=== PATIENT | female | born 1965 | race American Indian/Alaskan Native ===

== ENCOUNTER 2017-04-15 08:47 | Emergency (ER) | payer MEDICAID ==
[2017-04-15 10:12] LABS: Basophils # (Auto) 0.1 K/mm3 (0.0-0.1); Basophils % (Auto) 0.8 % (0.0-1.8); Eosinophils # (Auto) 0.4 K/mm3 (0.0-0.4); Eosinophils % (Auto) 5.3 % (0.0-4.3); Hematocrit 40.6 % (30.3-42.9); Hemoglobin 12.7 gm/dl (10.1-14.3); Lymphocytes # (Auto) 1.9 K/mm3 (1.2-5.4); Lymphocytes % (Auto) 23.1 % (13.4-35.0); Mean Corpuscular HGB Conc 31 % (30-34); Mean Corpuscular Volume 76 fl (79-97); Monocytes # (Auto) 0.6 K/mm3 (0.0-0.8); Platelet Count 258 K/mm3 (140-440); Red Blood Count 5.33 M/mm3 (3.65-5.03); Red Cell Distribution Width 13.9 % (13.2-15.2)
[2017-04-15 10:22] LABS: BUN/Creatinine Ratio 13; Blood Urea Nitrogen 10 mg/dL (7-17); Calcium 8.6 mg/dL (8.4-10.2); Hemolysis Index 5; Mean Corpuscular Hemoglobin 24 pg (28-32)
[2017-04-15 13:30] LABS: Bilirubin,Urine NEG (Negative); Blood,Urine NEG (Negative); Color,Urine Yellow (Yellow); Mucus,Urine FEW /HPF; Nitrite,Urine NEG (Negative); Protein,Urine <15 mg/dL mg/dL (Negative); Urobilinogen,Urine < 2.0 mg/dL (<2.0)
[2017-04-15] MEDS ORDERED: NACL 0.9% 1000 ML 1,000 ML ONE (14:12)
--- NOTE | 2017-04-15 14:21 | Emergency Department Report ---
ED General Adult HPI - General Chief complaint: Hyperglycemia Stated complaint: BLOOD SUGAR HIGH Time Seen by Provider: 04/15/17 14:09 Source: patient Mode of arrival: Ambulatory Limitations: No Limitations - History of Present Illness Initial comments: 51 years old female history of diabetes and sarcoidosis and hypertension, presented to the ER with elevated blood sugar. Patient stated that for the last 2-3 days she is unable to control her blood sugar although she is taking her insulin and eating a diabetic meal. Patient stated that the last few days she's been coughing with greenish sputum. She also had a left eye redness for which she saw her mannequin maker today and was given antibiotic eyedrops. Patient denied any chest pain or shortness of breath. - Related Data Home Medications Medication Instructions Recorded Confirmed Last Taken Insulin Detemir [Levemir VIAL] 30 units IM TID 01/04/16 01/04/16 Unknown Insulin Lispro [HumaLOG VIAL] 15 units SQ AC 01/04/16 01/04/16 Unknown [place] Carbonate [Eskalith] 300 mg PO QAM 01/04/16 01/04/16 Unknown [place] Carbonate [Eskalith] 600 mg PO QHS 01/04/16 01/04/16 Unknown Simvastatin [Zocor TAB] 20 mg PO QHS 01/04/16 01/04/16 Unknown buPROPion XL [Wellbutrin XL] 150 mg PO QAM 01/04/16 01/04/16 Unknown Previous Rx's Medication Instructions Recorded Last Taken Type Famotidine [Pepcid] 20 mg PO BID #60 tablet 01/05/16 Unknown Rx Allergies Allergy/AdvReac Type Severity Reaction Status Date / Time No Known Allergies Allergy Verified 01/04/16 00:09 ED Review of Systems ROS: Stated complaint: BLOOD SUGAR HIGH Other details as noted in HPI Comment: All other systems reviewed and negative Constitutional: denies: chills, fever Eyes: eye discharge Respiratory: denies: cough, orthopnea, shortness of breath, SOB with exertion Cardiovascular: denies: chest pain Gastrointestinal: denies: abdominal pain, nausea, vomiting, diarrhea, constipation, hematemesis, melena, hematochezia Neurological: denies: headache, weakness, numbness, paresthesias ED Past Medical Hx - Past Medical History Previous Medical History?: Yes Hx Hypertension: Yes (patient states she was taken off her blood pressure medicine) Hx CVA: Yes (?) Hx Diabetes: Yes Hx Asthma: Yes Additional medical history: SARCODOSIS / HIGH CHOLESTEROL - Surgical History Past Surgical History?: Yes Additional Surgical History: HYSTERECTOMY - Social History Smoking Status: Former Smoker Substance Use Type: Non Opiate Pain, Prescribed - Medications Home Medications: Home Medications Medication Instructions Recorded Confirmed Last Taken Type Insulin Detemir [Levemir VIAL] 30 units IM TID 01/04/16 01/04/16 Unknown History Insulin Lispro [HumaLOG VIAL] 15 units SQ AC 01/04/16 01/04/16 Unknown History [place] Carbonate [Eskalith] 300 mg PO QAM 01/04/16 01/04/16 Unknown History [place] Carbonate [Eskalith] 600 mg PO QHS 01/04/16 01/04/16 Unknown History Simvastatin [Zocor TAB] 20 mg PO QHS 01/04/16 01/04/16 Unknown History buPROPion XL [Wellbutrin XL] 150 mg PO QAM 01/04/16 01/04/16 Unknown History Famotidine [Pepcid] 20 mg PO BID #60 tablet 01/05/16 Unknown Rx ED Physical Exam - General Limitations: No Limitations General appearance: alert, in no apparent distress - Head Head exam: Present: atraumatic, normocephalic, normal inspection - Eye Eye exam: Present: conjunctival injection - ENT ENT exam: Present: normal exam, normal orophraynx, mucous membranes moist - Neck Neck exam: Present: normal inspection, full ROM. Absent: tenderness, meningismus - Respiratory Respiratory exam: Present: normal lung sounds bilaterally. Absent: respiratory distress, wheezes, rales, rhonchi, stridor, chest wall tenderness, accessory muscle use, decreased breath sounds, prolonged expiratory - Cardiovascular Cardiovascular Exam: Present: regular rate, normal rhythm, normal heart sounds - GI/Abdominal GI/Abdominal exam: Present: soft, normal bowel sounds. Absent: distended, tenderness, guarding, rebound, rigid, organomegaly, mass, bruit, pulsatile mass , hernia - Extremities Exam Extremities exam: Present: normal inspection, full ROM, normal capillary refill - Back Exam Back exam: Present: normal inspection, full ROM. Absent: tenderness, CVA tenderness (R), CVA tenderness (L), muscle spasm, paraspinal tenderness, vertebral tenderness, rash noted - Neurological Exam Neurological exam: Present: alert, oriented X3, CN II-XII intact, normal gait - Skin Skin exam: Present: warm, intact, normal color. Absent: cyanosis, diaphoretic, erythema, urticaria ED Course Vital Signs 04/15/17 04/15/17 09:34 15:41 Temperature 98.7 F Pulse Rate 89 75 Respiratory 20 16 Rate Blood Pressure 138/76 Blood Pressure 137/71 [Left] O2 Sat by Pulse 100 99 Oximetry - Reevaluation(s) Reevaluation #1: 04/15/17 19:52 Patient stated that she is feeling much better. I advised to follow-up with her primary care physician in the next 2-3 days. Patient admitted that she is not taking her Levemir as she is supposed to sometimes she skipped a dose or 2. ED Medical Decision Making - Lab Data Result diagrams: 04/15/17 09:46 04/15/17 09:46 - EKG Data -: EKG Interpreted by Ia EKG shows normal: sinus rhythm - EKG Data Interpretation: no acute changes - Radiology Data Radiology results: report reviewed Referring Physician: BOBBY BROCK Patient Name: DOTTY CHAIDEZ Date of : 1965 Sex: Female Report Date: 2017-04-15 Report Status: Finalized Findings [address] [address] XRay Report Signed Patient: DOTTY CHAIDEZ MR#: [id number] : 1965 Acct:[id number] Age/Sex: 51 / F ADM Date: 04/15/17 Loc: ED Attending Dr: Ordering Physician: BOBBY BROCK Date of Service: 04/15/17 Procedure(s): XR chest 1V ap Accession Number(s): [id number] cc: BOBBY BROCK Fluoro Time In Minutes: AP CHEST: HISTORY: Cough AP view of the chest demonstrates a normal mediastinal and cardiac contour with clear lungs and normal bony and soft tissue structures. IMPRESSION: Unremarkable AP chest. Transcribed By: TTR Dictated By: CONSUELO PALOMINO JR, MD Electronically Authenticated By: CONSUELO PALOMINO JR, MD Signed Date/Time: 04/15/171445 DD/ 45 TD/TT: 04/15/171445 Critical care attestation.: If time is entered above; I have spent that time in minutes in the direct care of this critically ill patient, excluding procedure time. ED Disposition Clinical Impression: Diabetes mellitus type 2 in nonobese, Hyperglycemia due to type 2 diabetes mellitus Disposition: - TO HOME OR SELFCARE Is pt being admited?: No Condition: Stable Instructions: Diabetes Mellitus Type 2 in Adults (ED) Referrals: PRIMARY CARE, [Primary Care Provider] - 3-5 Days
--- NOTE | 2017-04-15 14:52 | XRay Report ---
AP CHEST: HISTORY: Cough AP view of the chest demonstrates a normal mediastinal and cardiac contour with clear lungs and normal bony and soft tissue structures. IMPRESSION: Unremarkable AP chest.
[2017-04-15] MEDS ORDERED: NACL 0.9% 1000 ML 1,000 ML IV ONE ×3 (15:29→18:35)
[2017-04-15 15:42] VITALS: BP 137/71
[2017-04-15] MEDS ORDERED: TYLENOL ONE (16:16)
[2017-04-15] MEDS ORDERED: TYLENOL PO ONE (16:18)
== END 2017-04-15 20:27 | disposition home or self-care (01) ==
LOC: ED 08:47
DX: E11.65 Type 2 diabetes mellitus with hyperglycemia (principal); I10 Essential (primary) hypertension; J45.909 Unspecified asthma, uncomplicated
CPT/HCPCS: 71045; 80048; 81001; 82962; 84484; 85025; 93005; 93010; 96361; 96372; 96374; 99284; J7030; J1815

== ENCOUNTER 2017-08-09 13:42 | Emergency (ER) | payer MEDICAID ==
[2017-08-09 15:26] LABS: Basophils # (Auto) 0.1 K/mm3 (0.0-0.1); Basophils % (Auto) 1.1 % (0.0-1.8); Eosinophils # (Auto) 0.4 K/mm3 (0.0-0.4); Eosinophils % (Auto) 3.8 % (0.0-4.3); Hematocrit 41.5 % (30.3-42.9); Hemoglobin 13.1 gm/dl (10.1-14.3); Lymphocytes # (Auto) 1.9 K/mm3 (1.2-5.4); Lymphocytes % (Auto) 19.2 % (13.4-35.0); Mean Corpuscular HGB Conc 32 % (30-34); Mean Corpuscular Volume 74 fl (79-97); Monocytes # (Auto) 0.7 K/mm3 (0.0-0.8); Monocytes % (Auto) 7.3 % (0.0-7.3); Platelet Count 316 K/mm3 (140-440); Red Blood Count 5.59 M/mm3 (3.65-5.03); Red Cell Distribution Width 14.5 % (13.2-15.2)
[2017-08-09 15:29] LABS: Mean Corpuscular Hemoglobin 24 pg (28-32)
[2017-08-09 15:50] LABS: Alanine Aminotransferase 14 units/L (7-56); Albumin 3.9 g/dL (3.9-5); BUN/Creatinine Ratio 19; Blood Urea Nitrogen 15 mg/dL (7-17); Calcium 9.3 mg/dL (8.4-10.2); Hemolysis Index 9; Lipase 24 units/L (13-60)
[2017-08-09 17:04] LABS: Bacteria,Urine 1+ /HPF (Negative); Bilirubin,Urine NEG (Negative); Blood,Urine NEG (Negative); Color,Urine Yellow (Yellow); Hyaline Casts,Urine 3 /LPF; Mucus,Urine FEW /HPF; Protein,Urine <15 mg/dL mg/dL (Negative); Urobilinogen,Urine < 2.0 mg/dL (<2.0)
--- NOTE | 2017-08-10 00:06 | Emergency Department Report ---
ED General Adult HPI - General Chief complaint: Pain General Stated complaint: GROIN PAIN Time Seen by Provider: 08/10/17 00:01 Source: patient Mode of arrival: Ambulatory Limitations: No Limitations - History of Present Illness Initial comments: Previous abdominal surgery here today with increasing left lower quadrant pain, occ nausea and vomiting but no black or bloody stool, no fever, no radiation, no cp, no calf pain or swelling, no cough or sob -: Gradual, days(s) Location: abdomen Radiation: non-radiation Quality: sharp Consistency: intermittent, colicky Associated Symptoms: malaise, nausea/vomiting. denies: diaphoresis, fever/ chills, headaches, loss of appetite, rash, seizure, shortness of breath, syncope , weakness - Related Data Home Medications Medication Instructions Recorded Confirmed Last Taken Insulin Detemir [Levemir VIAL] 30 units IM TID 01/04/16 01/04/16 Unknown Insulin Lispro [HumaLOG VIAL] 15 units SQ AC 01/04/16 01/04/16 Unknown [place] Carbonate [Eskalith] 300 mg PO QAM 01/04/16 01/04/16 Unknown [place] Carbonate [Eskalith] 600 mg PO QHS 01/04/16 01/04/16 Unknown Simvastatin [Zocor TAB] 20 mg PO QHS 01/04/16 01/04/16 Unknown buPROPion XL [Wellbutrin XL] 150 mg PO QAM 01/04/16 01/04/16 Unknown Previous Rx's Medication Instructions Recorded Last Taken Type Famotidine [Pepcid] 20 mg PO BID #60 tablet 01/05/16 Unknown Rx Ciprofloxacin HCl [Cipro] 500 mg PO BID #14 tablet 08/10/17 Unknown Rx metroNIDAZOLE [Flagyl] 500 mg PO Q12HR #14 tab 08/10/17 Unknown Rx Allergies Allergy/AdvReac Type Severity Reaction Status Date / Time No Known Allergies Allergy Verified 01/04/16 00:09 ED Review of Systems ROS: Stated complaint: GROIN PAIN Other details as noted in HPI Comment: All other systems reviewed and negative Constitutional: denies: diaphoresis, fever, malaise Eyes: denies: eye discharge, vision change ENT: denies: dental pain, hearing loss, epistaxis Respiratory: denies: shortness of breath, SOB with exertion, SOB at rest, stridor Cardiovascular: denies: chest pain, palpitations, dyspnea on exertion, orthopnea , edema, syncope Gastrointestinal: abdominal pain, nausea. denies: diarrhea, constipation, hematemesis, melena, hematochezia Genitourinary: denies: urgency, dysuria, frequency, hematuria, discharge Neurological: denies: headache, weakness, numbness, paresthesias, confusion, abnormal gait Hematological/Lymphatic: denies: easy bruising, swollen glands ED Past Medical Hx - Past Medical History Previous Medical History?: Yes Hx Hypertension: Yes (patient states she was taken off her blood pressure medicine) Hx CVA: Yes (?) Hx Diabetes: Yes Hx Asthma: Yes Additional medical history: SARCODOSIS / HIGH CHOLESTEROL - Surgical History Past Surgical History?: Yes Additional Surgical History: HYSTERECTOMY - Social History Smoking Status: Former Smoker Substance Use Type: Prescribed - Medications Home Medications: Home Medications Medication Instructions Recorded Confirmed Last Taken Type Insulin Detemir [Levemir VIAL] 30 units IM TID 01/04/16 01/04/16 Unknown History Insulin Lispro [HumaLOG VIAL] 15 units SQ AC 01/04/16 01/04/16 Unknown History [place] Carbonate [Eskalith] 300 mg PO QAM 01/04/16 01/04/16 Unknown History [place] Carbonate [Eskalith] 600 mg PO QHS 01/04/16 01/04/16 Unknown History Simvastatin [Zocor TAB] 20 mg PO QHS 01/04/16 01/04/16 Unknown History buPROPion XL [Wellbutrin XL] 150 mg PO QAM 01/04/16 01/04/16 Unknown History Famotidine [Pepcid] 20 mg PO BID #60 tablet 01/05/16 Unknown Rx Ciprofloxacin HCl [Cipro] 500 mg PO BID #14 tablet 08/10/17 Unknown Rx metroNIDAZOLE [Flagyl] 500 mg PO Q12HR #14 tab 08/10/17 Unknown Rx ED Physical Exam - General Limitations: No Limitations General appearance: alert, anxious, other (nontoxic) - Head Head exam: Present: atraumatic, normocephalic - Eye Eye exam: Present: normal appearance, PERRL, EOMI - ENT ENT exam: Present: normal exam, normal orophraynx - Neck Neck exam: Present: normal inspection. Absent: tenderness, meningismus - Respiratory Respiratory exam: Present: normal lung sounds bilaterally. Absent: respiratory distress, wheezes, rales, rhonchi, stridor, chest wall tenderness, accessory muscle use, decreased breath sounds, prolonged expiratory - Cardiovascular Cardiovascular Exam: Present: regular rate, normal rhythm, normal heart sounds. Absent: bradycardia, tachycardia, irregular rhythm - GI/Abdominal GI/Abdominal exam: Present: soft, tenderness, other (left lower quadrant tenderness). Absent: guarding, rebound, rigid, mass, pulsatile mass - Rectal Rectal exam: Present: deferred - Extremities Exam Extremities exam: Present: normal inspection, normal capillary refill. Absent: pedal edema, joint swelling, calf tenderness - Back Exam Back exam: Present: normal inspection. Absent: CVA tenderness (L), muscle spasm , paraspinal tenderness, vertebral tenderness - Neurological Exam Neurological exam: Present: alert, oriented X3, CN II-XII intact. Absent: motor sensory deficit - Skin Skin exam: Present: warm. Absent: cyanosis, diaphoretic, erythema, urticaria, vesicles, petechiae, pallor, abrasion, ecchymosis ED Course Vital Signs 08/09/17 08/09/17 08/09/17 14:40 23:43 23:44 Temperature 98.5 F Pulse Rate 74 Respiratory 20 Rate Blood Pressure 122/70 135/85 Blood Pressure [Left] O2 Sat by Pulse 98 100 100 Oximetry 08/09/17 08/09/17 08/10/17 23:45 23:57 00:00 Temperature Pulse Rate 80 78 Respiratory 21 20 Rate Blood Pressure 135/85 135/85 138/87 Blood Pressure [Left] O2 Sat by Pulse 99 100 100 Oximetry 08/10/17 08/10/17 08/10/17 00:15 00:30 00:45 Temperature Pulse Rate 85 83 81 Respiratory 22 21 19 Rate Blood Pressure 135/85 129/81 138/87 Blood Pressure [Left] O2 Sat by Pulse 99 100 Oximetry 08/10/17 08/10/17 08/10/17 01:01 01:11 01:15 Temperature 97.7 F Pulse Rate 79 88 77 Respiratory 19 16 17 Rate Blood Pressure 138/87 129/81 Blood Pressure 135/85 [Left] O2 Sat by Pulse 100 100 100 Oximetry 08/10/17 08/10/17 08/10/17 01:31 01:45 02:45 Temperature Pulse Rate 77 79 85 Respiratory 19 18 20 Rate Blood Pressure Blood Pressure [Left] O2 Sat by Pulse 99 100 99 Oximetry 08/10/17 08/10/17 08/10/17 03:00 03:15 03:31 Temperature Pulse Rate 75 75 79 Respiratory 18 17 13 Rate Blood Pressure 121/81 Blood Pressure [Left] O2 Sat by Pulse 100 99 Oximetry 08/10/17 08/10/17 08/10/17 03:45 04:00 04:15 Temperature Pulse Rate 92 H 74 78 Respiratory 18 19 19 Rate Blood Pressure 121/81 127/81 Blood Pressure [Left] O2 Sat by Pulse 98 Oximetry 08/10/17 04:31 Temperature Pulse Rate 78 Respiratory 14 Rate Blood Pressure 127/81 Blood Pressure [Left] O2 Sat by Pulse 100 Oximetry ED Medical Decision Making - Lab Data Result diagrams: 08/09/17 15:03 08/09/17 15:03 - Radiology Data Radiology results: report reviewed - Medical Decision Making Patient tolerating by mouth CT does show diverticulitis no evidence of perforation or abscess patient does not have evidence of a surgical abdomen at this time and vital signs are stable she is here for stable for outpatient follow-up Critical care attestation.: If time is entered above; I have spent that time in minutes in the direct care of this critically ill patient, excluding procedure time. ED Disposition Clinical Impression: Diverticulitis Disposition: DC-01 TO HOME OR SELFCARE Is pt being admited?: No Condition: Stable Instructions: Diverticulitis (ED) Additional Instructions: Return if new alarming symptoms see the doctor listed very regular doctor Prescriptions: Ciprofloxacin HCl [Cipro] 500 mg PO BID #14 tablet metroNIDAZOLE [Flagyl] 500 mg PO Q12HR #14 tab Referrals: FANTA MCKENZIE MD [Primary Care Provider] - 3-5 Days LOTTIE SERNA MD [Staff Physician] - 3-5 Days Time of Disposition: 05:08
--- NOTE | 2017-08-10 03:14 | Cat Scan Report ---
FINAL REPORT PROCEDURE: CT ABDOMEN PELVIS W CON TECHNIQUE: Computerized axial tomography of the abdomen and pelvis was performed after the IV injection of iodinated nonionic contrast. HISTORY: abd pain COMPARISON: No prior studies are available for comparison. FINDINGS: Visualized lower thorax: No significant abnormality. Liver: Liver is enlarged at 20 centimeters. There is no mass.. Spleen: Normal size and attenuation. Gallbladder and biliary system: Normal. Pancreas: Normal. Adrenals: Normal. Kidneys: Normal. GI tract: There is focal acute diverticulitis of the left colon. There is no obstruction or perforation. The stomach, small bowel and appendix are normal.. Lymph nodes and mesentery: There are borderline enlarged mesenteric lymph nodes which are nonspecific.. Vasculature: Normal. Bladder: Normal. Reproductive organs: There has been a hysterectomy. Peritoneum: There is no ascites, free air, abscess or mass.. Musculoskeletal structures: No significant abnormality. Other: None. IMPRESSION: Liver is enlarged at 20 centimeters. There is no mass.. There is focal acute diverticulitis of the left colon. There is no obstruction or perforation. The stomach, small bowel and appendix are normal.. There are borderline enlarged mesenteric lymph nodes which are nonspecific.. There has been a hysterectomy. There is no ascites, free air, abscess or mass..
[2017-08-10 05:27] VITALS: BP 115/76
== END 2017-08-10 05:30 | disposition home or self-care (01) ==
LOC: ED 13:42
DX: K57.92 Diverticulitis of intestine, part unspecified, without perforation or abscess without bleeding (principal); I10 Essential (primary) hypertension; E78.00 Pure hypercholesterolemia, unspecified; E11.9 Type 2 diabetes mellitus without complications; J45.909 Unspecified asthma, uncomplicated; Z86.73 Personal history of transient ischemic attack (TIA), and cerebral infarction without residual deficits; Z90.710 Acquired absence of both cervix and uterus; Z87.891 Personal history of nicotine dependence; Z79.4 Long term (current) use of insulin
CPT/HCPCS: 36415; 74177; 80053; 81001; 82962; 83690; 85025; 99284; Q9967

== ENCOUNTER 2020-09-05 16:04 | Emergency (ER) | payer MEDICAID ==
[2020-09-05 16:22] VITALS: BP 126/76
--- NOTE | 2020-09-05 17:29 | Emergency Department Report ---
ED Back Pain/Injury HPI - General Chief Complaint: Extremity Injury, Lower Stated Complaint: RT SIDE BACK/FRONT PAIN Source: patient Limitations: No Limitations - History of Present Illness Initial Comments: Patient is a 54-year-old -Al[place] female with a history of hypertension, CVA, [id number] diabetes, chronic osteoarthritis, sarcoidosis and asthma who presents to the ED with complaint of acute onset persistent nontraumatic low back pain that radiates to the right hip for the last 12 hours, worse in the last 2 hours. Patient states that the pain is worse with any movement. Patient denies fall, traumatic injury, dizziness, syncope, dysuria, urinary frequency and urgency, abdominal pain, fever, chills, cough, chest pain, shortness of breath, numbness and tingling or weakness of upper and lower extremities bilaterally or heavy lifting. MD Complaint: back pain, other (right hip pain) -: Sudden, hour(s) (12) Similar Symptoms Previously: Yes Place: home Radiation: groin, buttocks Severity: severe Severity scale (0 -10): 7 Consistency: constant Improves With: none Worsens With: movement, walking Associated Symptoms: denies other symptoms. denies: confusion, weakness, chest pain, numbness, difficulty walking, cough, difficulty urinating, diaphoresis, incontinence, fever/chills, constipation, headaches, abdominal pain, loss of appetite, malaise, nausea/vomiting, rash, seizure, syncope - Related Data Home Medications Medication Instructions Recorded Confirmed Last Taken Insulin Detemir [Levemir VIAL] 30 units IM TID 01/04/16 01/04/16 Unknown Insulin Lispro [HumaLOG VIAL] 15 units SQ AC 01/04/16 01/04/16 Unknown [place] Carbonate [Eskalith] 300 mg PO QAM 01/04/16 01/04/16 Unknown [place] Carbonate [Eskalith] 600 mg PO QHS 01/04/16 01/04/16 Unknown Simvastatin (Nf) [Zocor TAB] 20 mg PO QHS 01/04/16 01/04/16 Unknown buPROPion XL [Wellbutrin XL] 150 mg PO QAM 01/04/16 01/04/16 Unknown Previous Rx's Medication Instructions Recorded Last Taken Type Famotidine [Pepcid] 20 mg PO BID #60 tablet 01/05/16 Unknown Rx Ciprofloxacin HCl [Cipro] 500 mg PO BID #14 tablet 08/10/17 Unknown Rx metroNIDAZOLE [Flagyl] 500 mg PO Q12HR #14 tab 08/10/17 Unknown Rx Baclofen 40 mg PO Q12H PRN #20 tablet 09/05/20 Unknown Rx Naproxen 500 mg PO Q12H PRN #30 tablet 09/05/20 Unknown Rx predniSONE [Deltasone] 40 mg PO QDAY #10 tab 09/05/20 Unknown Rx Allergies Allergy/AdvReac Type Severity Reaction Status Date / Time No Known Allergies Allergy Verified 09/05/20 16:17 ED Review of Systems ROS: Stated complaint: RT SIDE BACK/FRONT PAIN Other details as noted in HPI Constitutional: denies: chills, fever Eyes: denies: eye pain, eye discharge, vision change ENT: denies: ear pain, throat pain Respiratory: denies: cough, shortness of breath, wheezing Cardiovascular: denies: chest pain, palpitations Endocrine: no symptoms reported Gastrointestinal: denies: abdominal pain, nausea, diarrhea Genitourinary: denies: urgency, dysuria, discharge Musculoskeletal: back pain (lower back pain), arthralgia (right hip pain), myalgia. denies: joint swelling Skin: denies: rash, lesions Neurological: denies: headache, weakness, paresthesias Psychiatric: denies: anxiety, depression Hematological/Lymphatic: denies: easy bleeding, easy bruising ED Past Medical Hx - Past Medical History Hx Hypertension: Yes Hx CVA: Yes (?) Hx Diabetes: Yes Hx Arthritis: Yes Hx Asthma: Yes Additional medical history: SARCODOSIS / HIGH CHOLESTEROL - Surgical History Additional Surgical History: HYSTERECTOMY - Social History Smoking Status: Never Smoker Substance Use Type: None - Medications Home Medications: Home Medications Medication Instructions Recorded Confirmed Last Taken Type Insulin Detemir [Levemir VIAL] 30 units IM TID 01/04/16 01/04/16 Unknown History Insulin Lispro [HumaLOG VIAL] 15 units SQ AC 01/04/16 01/04/16 Unknown History [place] Carbonate [Eskalith] 300 mg PO QAM 01/04/16 01/04/16 Unknown History [place] Carbonate [Eskalith] 600 mg PO QHS 01/04/16 01/04/16 Unknown History Simvastatin (Nf) [Zocor TAB] 20 mg PO QHS 01/04/16 01/04/16 Unknown History buPROPion XL [Wellbutrin XL] 150 mg PO QAM 01/04/16 01/04/16 Unknown History Famotidine [Pepcid] 20 mg PO BID #60 tablet 01/05/16 Unknown Rx Ciprofloxacin HCl [Cipro] 500 mg PO BID #14 tablet 08/10/17 Unknown Rx metroNIDAZOLE [Flagyl] 500 mg PO Q12HR #14 tab 08/10/17 Unknown Rx Baclofen 40 mg PO Q12H PRN #20 tablet 09/05/20 Unknown Rx Naproxen 500 mg PO Q12H PRN #30 tablet 09/05/20 Unknown Rx predniSONE [Deltasone] 40 mg PO QDAY #10 tab 09/05/20 Unknown Rx ED Physical Exam - General Limitations: No Limitations General appearance: alert, in no apparent distress - Head Head exam: Present: atraumatic, normocephalic, normal inspection - Eye Eye exam: Present: normal appearance, PERRL, EOMI Pupils: Present: normal accommodation - ENT ENT exam: Present: normal exam, normal orophraynx, mucous membranes moist, TM's normal bilaterally, normal external ear exam - Neck Neck exam: Present: normal inspection, full ROM - Respiratory Respiratory exam: Present: normal lung sounds bilaterally. Absent: respiratory distress, wheezes, rales, rhonchi, chest wall tenderness, accessory muscle use, decreased breath sounds, prolonged expiratory - Cardiovascular Cardiovascular Exam: Present: regular rate, normal rhythm, normal heart sounds. Absent: systolic murmur, diastolic murmur, rubs, gallop - GI/Abdominal GI/Abdominal exam: Present: soft, normal bowel sounds. Absent: tenderness, gu arding, rebound, hyperactive bowel sounds, hypoactive bowel sounds, organomegaly - Extremities Exam Extremities exam: Present: normal inspection, full ROM, tenderness (Palpable right hip tenderness), normal capillary refill - Back Exam Back exam: Present: normal inspection, full ROM, tenderness (Palpable lumbosacral paraspinal musculoskeletal tenderness), muscle spasm, paraspinal tenderness. Absent: CVA tenderness (L), vertebral tenderness - Neurological Exam Neurological exam: Present: alert, oriented X3, CN II-XII intact, normal gait, reflexes normal - Psychiatric Psychiatric exam: Present: normal affect, normal mood - Skin Skin exam: Present: warm, dry, intact, normal color. Absent: rash ED Course Vital Signs 09/05/20 16:19 Temperature 98.4 F Pulse Rate 96 H Respiratory 20 Rate Blood Pressure 126/76 O2 Sat by Pulse 100 Oximetry ED Medical Decision Making - Medical Decision Making This is a 54-year-old -Algerian female with a history of hypertension, CVA, [id number] diabetes, chronic osteoarthritis, sarcoidosis and asthma who presents to the ED with complaint of acute onset persistent nontraumatic low back pain that radiates to the right hip for the last 12 hours, worse in the last 2 hours. Patient states that the pain is worse with any movement. In the ED, patient is alert and oriented x3 and is not in any distress. Patient is hemodynamically stable. Patient was discharged home on medications for pain and muscle relaxants based on the physical exam findings. Patient was advised to follow-up with her primary care physician in 5 to 7 days for reevaluation or return to the ED immediately if symptoms get worse. - Differential Diagnosis Muscle spasm; Osteoarthritis; Muscle strain; bursitis Critical care attestation.: If time is entered above; I have spent that time in minutes in the direct care of this critically ill patient, excluding procedure time. ED Disposition Clinical Impression: Spasm of muscle of lower back, Chronic bilateral low back pain without sciatica Bursitis of right hip Qualifiers: Hip bursitis location: trochanteric bursitis Qualified Code(s): M70.61 - Trochanteric bursitis, right hip Strain of muscle of right hip Qualifiers: Encounter type: initial encounter Qualified Code(s): S76.011A - Strain of muscle, fascia and tendon of right hip, initial encounter Disposition: - TO HOME OR SELFCARE Is pt being admited?: No Does the pt Need Aspirin: No Condition: Stable Instructions: Muscle Cramps and Spasms, [id number], Hip Bursitis, [id number], Muscle Strain, [id number], Chronic Back Pain, [id number] Additional Instructions: Take medication with food, drink plenty of fluids and follow-up with your primary care physician in 5 to 7 days for reevaluation. Return to the ED immediately if symptoms get worse Prescriptions: Baclofen 40 mg PO Q12H PRN #20 tablet PRN Reason: Muscle Spasm predniSONE [Deltasone] 40 mg PO QDAY #10 tab Naproxen 500 mg PO Q12H PRN #30 tablet PRN Reason: Pain , Severe (7-10) Referrals: [facility] [Provider Group] - 3-5 Days Time of Disposition: 17:26 Print Language: BENGALI
== END 2020-09-05 17:43 | disposition home or self-care (01) ==
LOC: ED 16:04
DX: S76.011A Strain of muscle, fascia and tendon of right hip, initial encounter (principal); M70.71 Other bursitis of hip, right hip; M54.5 Low back pain; M62.838 Other muscle spasm; I10 Essential (primary) hypertension; E11.9 Type 2 diabetes mellitus without complications; J45.909 Unspecified asthma, uncomplicated; M19.91 Primary osteoarthritis, unspecified site; Z90.710 Acquired absence of both cervix and uterus; Z79.4 Long term (current) use of insulin; Z79.899 Other long term (current) drug therapy; X58.XXXA Exposure to other specified factors, initial encounter; Y93.89 Activity, other specified; Y92.89 Other specified places as the place of occurrence of the external cause; Y99.8 Other external cause status
CPT/HCPCS: 99282